=== PATIENT | female | born 1995 | race American Indian/Alaskan Native ===

== ENCOUNTER 2016-09-26 13:01 | Emergency (ER) | payer SELFPAY ==
--- NOTE | 2016-09-26 13:41 | Emergency Department Report ---
Chief Complaint: Headache Stated Complaint: HEAD PAIN Time Seen by Provider: 09/26/16 13:37 - HPI History of Present Illness: pt c/o headache and sore throat x 2 weeks. PT is concerned because her mother has htn and goiter. PT states she was on htn medication but she ran out and her pcp in [place] would not refill - ROS Review of Systems: - fever - wt gain - constipation - Exam Vital Signs: Vital Signs 09/26/16 13:18 Temperature 98.2 F Pulse Rate 94 H Respiratory 18 Rate Blood Pressure 149/104 O2 Sat by Pulse 100 Oximetry Physical Exam: obese female, no acute distress gcs 15, steady gait, no focal weakness MSE screening note: Focused history and physical exam performed. Due to findings the following was ordered: labs ED Disposition for MSE Condition: Stable
[2016-09-26 13:56] LABS: Basophils % (Auto) 0.4 % (0.0-1.8); Eosinophils % (Auto) 0.3 % (0.0-4.3); Hematocrit 36.9 % (30.3-42.9); Hemoglobin 11.9 gm/dl (10.1-14.3); Mean Corpuscular HGB Conc 32 % (30-34); Mean Corpuscular Hemoglobin 27 pg (28-32); Mean Corpuscular Volume 84 fl (79-97); Platelet Count 379 K/mm3 (140-440); Red Blood Count 4.42 M/mm3 (3.65-5.03); White Blood Count 14.3 K/mm3 (4.5-11.0)
[2016-09-26 14:09] LABS: Anion Gap 15 mmol/L; BUN/Creatinine Ratio 17.14; Blood Urea Nitrogen 12 mg/dL (7-17); Calcium 8.9 mg/dL (8.4-10.2); Carbon Dioxide 24 mmol/L (22-30); Chloride 106.8 mmol/L (98-107); Glucose 85 mg/dL (65-100); Potassium 4.1 mmol/L (3.6-5.0); Sodium 142 mmol/L (137-145)
[2016-09-26] MEDS ORDERED: TORADOL IM ONE (15:56)
[2016-09-26] MEDS ORDERED: CATAPRES PO ONE (16:08)
--- NOTE | 2016-09-26 16:56 | Cat Scan Report ---
FINAL REPORT EXAM: CT HEAD/BRAIN WO CON HISTORY: headache TECHNIQUE: Standard unenhanced CT of the head at 5.0 millimeter axial increments. PRIORS: None. FINDINGS: The ventricular system is normal in size and configuration. There is no evidence for parenchymal volume loss. There is no evidence for mass lesion, mass effect, midline shift, acute intracranial hemorrhage, or acute ischemia/ infarction. No evidence for acute skull fracture is seen. No abnormality in the overlying scalp soft tissues is seen. Visualized paranasal sinuses are clear. IMPRESSION: Negative CT of the head. No acute intracranial process noted.
[2016-09-26 17:12] VITALS: BP 152/96
[2016-09-26 17:32] LABS: Bilirubin,Urine NEG (Negative); Blood,Urine LG (Negative); Ketones,Urine 20 mg/dL (Negative); Leukocyte Esterase,Urine SM (Negative); Nitrite,Urine NEG (Negative); Urobilinogen,Urine < 2.0 mg/dL (<2.0)
[2016-09-26 17:36] LABS: RBC,Urine > 182.0 /HPF (0.0-6.0)
--- NOTE | 2016-09-26 22:41 | Emergency Department Report ---
Entered by SHEREEN EDWARDS, acting as scribe for CATHERINE MATTSON NP. ED Headache HPI - General Chief Complaint: Headache Stated Complaint: HEAD PAIN Time Seen by Provider: 09/26/16 13:37 Source: patient Exam Limitations: no limitations - History of Present Illness Initial Comments: This is a 21 y/o female with Hx of HTN, nontoxic, well nourished in appearance, no acute signs of distress presents with constant, throbbing, diffuse headache that started 1 week ago with a gradual onset. Patient states "it is the worst headache in her life." Patient denies n/v, changes vision, chest pain, SOB, blurry vision, abd pain, facial droop, tingling, numbness, fever, chills, stiff neck, neck rigidity, difficulty breathing. Patient stated headache is decreased with darkness and aggravated by lights. Patient notes that she has not taken her HTN meds for 1 month. Past medical history includes hypertension but denies other significant past medical history. Timing/Duration: 1 week Quality: mild Head Injury Location: other (diffuse) Recent Head Trauma: no recent headache/trauma Associated Symptoms: denies symptoms. denies: confusion, fatigue, facial pain, fever/chills, flushing, loss of consciousness, nausea/vomiting, nasal congestion , nasal drainage, numbness in legs/feet, rash, seizures, sinus infection, stiff neck, vision changes, weakness Allergies/Adverse Reactions: Allergies No Known Allergies Allergy (Unverified 09/26/16 13:21) Home Medications: Ambulatory Orders Ibuprofen [Motrin 600 MG tab] 600 mg PO Q8H PRN #20 tablet 09/26/16 ED Review of Systems Comment: All other systems reviewed and negative Constitutional: no symptoms reported. denies: chills, fever Eyes: denies: eye pain, vision change ENT: denies: ear pain, throat pain Respiratory: denies: cough, shortness of breath Cardiovascular: denies: chest pain Endocrine: no symptoms reported Gastrointestinal: denies: abdominal pain, nausea, vomiting Genitourinary: denies: urgency, dysuria, discharge Musculoskeletal: denies: back pain, joint swelling, arthralgia Skin: denies: rash, lesions Neurological: headache ("worst HENRY of her life"). denies: weakness, numbness, other (facial droop, tingling) Psychiatric: denies: anxiety, depression Hematological/Lymphatic: denies: easy bleeding, easy bruising ED Past Medical Hx - Past Medical History Hx Hypertension: Yes (controlled) Hx Headaches / Migraines: Yes - Surgical History Past Surgical History?: No - Social History Smoking Status: Current Every Day Smoker Substance Use Type: None - Medications Home Medications: Home Medications Medication Instructions Recorded Confirmed Last Taken Type Ibuprofen [Motrin 600 MG tab] 600 mg PO Q8H PRN #20 tablet 09/26/16 Unknown Rx ED Physical Exam - General Limitations: No Limitations General appearance: alert, in no apparent distress - Head Head exam: Present: atraumatic, normocephalic, normal inspection - Eye Eye exam: Present: normal appearance, PERRL, EOMI Pupils: Present: normal accommodation - ENT ENT exam: Present: normal exam, normal orophraynx, mucous membranes moist, TM's normal bilaterally, normal external ear exam - Neck Neck exam: Present: normal inspection, full ROM. Absent: tenderness, meningismus, lymphadenopathy, thyromegaly, other (stiff neck, neck rigidity) - Respiratory Respiratory exam: Present: normal lung sounds bilaterally. Absent: respiratory distress, wheezes, rales, rhonchi, stridor - Cardiovascular Cardiovascular Exam: Present: regular rate, normal rhythm, normal heart sounds. Absent: systolic murmur, diastolic murmur, rubs, gallop - GI/Abdominal GI/Abdominal exam: Present: soft, normal bowel sounds. Absent: distended, tenderness, guarding, rebound, rigid, mass, bruit - Rectal Rectal exam: Present: deferred - Extremities Exam Extremities exam: Present: normal inspection, full ROM, normal capillary refill. Absent: tenderness, pedal edema, joint swelling, calf tenderness - Back Exam Back exam: Present: normal inspection, full ROM. Absent: tenderness, CVA tenderness (R), CVA tenderness (L), muscle spasm, paraspinal tenderness, vertebral tenderness, rash noted - Neurological Exam Neurological exam: Present: alert, oriented X3, CN II-XII intact, normal gait. Absent: abnormal gait, motor sensory deficit - Expanded Neurological Exam Expanded Patient oriented to: Present: person, place, time Speech: Present: fluid speech (normal speech) Cranial nerves: EOM's Intact: Normal, Gag Reflex: Normal, Tongue Deviation: Normal, Nystagmus: Normal, Facial Sensation: Normal, Facial Palsy with Forehead Movement: Normal, Facial Palsy without Forehead Movement: Normal Cerebellar function: Finger to Nose: Normal, Heel to Murgu[place]: Normal, Romberg: Normal Upper motor neuron: Shivam Neglect: Normal, Pronator Drift: Normal, Babinski Sign : Normal, Sensory Extinction: Normal Sensory exam: Upper Extremity Light Touch: Normal, Upper Extremity Pin Prick: Normal, Upper Extremity Temperature: Normal, UE 2 Point Discrimination: Normal, Lower Extremity Light Touch: Normal, Lower Extremity Pin Prick: Normal, Lower Extremity Temperature: Normal, LE 2 Point Discrimination: Normal Motor strength exam: RUE: 5, LUE: 5, RLE: 5, LLE: 5 DTR: bicep (R): 2+, bicep (L): 2+, tricep (R): 2+, tricep (L): 2+, knee (R): 2+ , knee (L): 2+, ankle (R): 2+, ankle (L): 2+ Best Eye Response (Sree): (4) open spontaneously Best Motor Response (Sree): (6) obeys commands Best Verbal Response (Anderson): (5) oriented Anderson Total: 15 - Psychiatric Psychiatric exam: Present: normal affect, normal mood - Skin Skin exam: Present: warm, normal color ED Course Vital Signs 09/26/16 09/26/16 09/26/16 13:18 16:23 16:24 Temperature 98.2 F Pulse Rate 94 H 90 Respiratory 18 16 Rate Blood Pressure 149/104 146/112 Blood Pressure [Right] O2 Sat by Pulse 100 Oximetry 09/26/16 17:11 Temperature Pulse Rate 69 Respiratory Rate Blood Pressure Blood Pressure 152/96 [Right] O2 Sat by Pulse Oximetry - Reevaluation(s) Reevaluation #1: 09/26/16 16:01 Patient is laying in bed and drinking watching TV. No signs of distress noted. - Consultations Consultation #1: 09/26/16 17:10 Dr. Fuller has been consulted about patient hx with CBC resutls of WBC. Agrees to the plan of d/c instructions. ED Medical Decision Making - Lab Data Result diagrams: 09/26/16 13:42 09/26/16 13:42 - Medical Decision Making Ed course: This is a 21-year-old female that presents with acute headache 1- after my physical exam, due to pt describes "worset" headache in her life and new onset of headache with hx of uncontrolled HTN a CT of head/magda w/o contrast has been obtained. Dictated by Dr. Vazquez; 2- CT scan results has been notified to the patient with no further question about the patient 3- patient received ibuprofen 600 mg by mouth at the time of discharge and was instructed to follow-up with her neurologist in 3-5 days or if symptoms worsen and headache is unbearable return to emergency room as soon as possible. 4- at time time of discharge, the patient does not seem toxic or ill in appearance. No acute signs of distress noted. Patient agrees to discharge treatment plan of care. No further questions noted by the patient. 5-Patient was also instructed to follow-up with her radiologist due to elevated blood pressure. 6 -Patient received Catapres in the ED to start a decrease in the blood pressure. 7- due to patient not having neck rigidity or stiffness and patient has been consulted Dr. Fuller, AN LP has not been obtained. Patient was instructed to follow-up with her primary care doctor in 24 hours to reevaluate of white blood cell count. 8- patient is currently on her menstrual cycle. ED Disposition Clinical Impression: Headache Disposition: DC-01 TO HOME OR SELFCARE Is pt being admited?: No Does the pt Need Aspirin: No Condition: Stable Instructions: Ibuprofen (By mouth), Acute Headache (ED) Additional Instructions: Follow-up with a dentistry teacher in 24 hours for your elevated blood pressure. Follow-up with your primary care doctor/neurologist in 24 days or if symptoms worsen and headache is unbearable, stiff neck, fever, chills, CP, SOB, numbeness or tingling, return to emergency room as soon as possible. Take ibuprofen as prescribed as needed for headache. Prescriptions: Ibuprofen [Motrin 600 MG tab] 600 mg PO Q8H PRN #20 tablet PRN Reason: Pain Referrals: [facility] [Outside] - 3-5 Days [facility] [Outside] - 3-5 Days XAVIER SHEEHAN JR, MD [Staff Physician] - 3-5 Days VERO SPENCE MD [Staff Physician] - 24 Hours GAUDENCIO,GAUDENCIO [Staff Physician] - 3-5 Days PRIMARY CARE,MD [Primary Care Provider] - 24 Hours Forms: Work/School Release Form(ED) This documentation as recorded by the JERRY whitt RYAN,accurately reflects the service I personally performed and the decisions made by me,CATHERINE MATTSON, MONA.
== END 2016-09-26 18:12 | disposition home or self-care (01) ==
LOC: ED 13:01
DX: G43.909 Migraine, unspecified, not intractable, without status migrainosus (principal); I10 Essential (primary) hypertension; F17.200 Nicotine dependence, unspecified, uncomplicated
CPT/HCPCS: 36415; 70450; 80048; 81001; 81025; 84443; 84703; 85025; 96372; 99284; J1885